=== PATIENT | female | born 1985 | race Caucasian/White ===

== ENCOUNTER 2017-04-20 19:33 | Emergency (ER) | payer MEDICAID ==
[~2017-04-20] VITALS: Ht 175.3 cm; Wt 164.1 kg
[~2017-04-20 19:33] MED LIST: IBUP600 PO; METH250T PO; OXYC1SOL5 PO; PERI8.6T PO; PREN0.01 PO; ZOVI200C24 PO
[2017-04-20 19:40] VITALS: BP 150/82; PULSE 97; RESP 18; TEMP 98.3; O2SAT 97
--- NOTE | 2017-04-20 20:34 | PD ---
HPI Chief Complaint: GI Complaint Time Seen by Provider: 20:18 Travel History International Travel<30 days: No Contact w/Intl Traveler<30days: No Traveled to known affect area: No History of Present Illness HPI The patient is a 32-year-old female that states she vomited twice at work, [employer], and was told to go to the emergency department. She does feel hot and dizzy but denies any fever. She states she has occasional diarrhea, she blames this on the metformin that she takes. She denies any blood in the stool or vomitus. She states she has a hard time urinating, she feels like she needs to urinate but it is only a small amount. PFSH Past Medical History Asthma: Yes (HX OF IN CHILDHOOD) Cancer: No Cardiovascular Problems: No Diabetes: Yes Patient Takes Glucophage: Yes (04/20/2017 at 1030) Diminished Hearing: No Endocrine: Yes Gastrointestinal Disorders: No Genitourinary: Yes (ANAL HERPES) Hepatitis: No Hiatal Hernia: No Hypertension: Yes Immune Disorder: No Musculoskeletal: No Neurologic: No Psychiatric: Yes (BI-POLAR) Reproductive: Yes Respiratory: Yes (ASTHMA) Immunizations Current: Yes Thyroid Disease: Yes Influenza Vaccination: No ?: Not LMP: 04/19/17 : 3 Para: 1 Miscarriage: 1 Dilation and Curettage (D&C): Yes Past Surgical History Section: Yes (2008) Gynecologic Surgery: Yes () Pacemaker: No Tonsillectomy: Yes (ADENOIDS TAKEN OUT) Other Surgery: Yes (RIGHT TRIGGER THUMB RELEASE) Social History Alcohol Use: No Tobacco Use: Yes (monthly) Substance Use: No Allergies-Medications (Allergen,Severity, Reaction): Coded Allergies: shellfish derived (Verified Allergy, Severe, swelling ,itching and shortness of breath, 04/20/17) Reported Meds & Prescriptions Reported Meds & Active Scripts Active Reported Metformin (Metformin HCl) 500 Mg Tab 500 Mg PO BIDPC Lisinopril 5 Mg Tab 5 Mg PO DAILY Review of Systems Except as stated in HPI: all other systems reviewed are Neg Physical Exam Narrative GENERAL: The patient is alert, obese, oriented 3 and in minimal apparent distress with her nausea. She does appear mildly dehydrated. Her vital signs show blood pressure 150/82 with heart rate of 97 but are otherwise normal. SKIN: Focused skin assessment warm/dry. HEAD: Atraumatic. Normocephalic. EYES: Pupils equal and round. No scleral icterus. No injection or drainage. ENT: No nasal bleeding or discharge. Mucous membranes pink and moist. NECK: Trachea midline. No JVD. CARDIOVASCULAR: Regular rate and rhythm. No murmur appreciated. RESPIRATORY: No accessory muscle use. Clear to auscultation. Breath sounds equal bilaterally. GASTROINTESTINAL: Abdomen soft, non-tender, nondistended. Hepatic and splenic margins not palpable. No guarding or rebound is present. MUSCULOSKELETAL: No obvious deformities. No clubbing. No cyanosis. No edema. NEUROLOGICAL: Awake and alert. No obvious cranial nerve deficits. Motor grossly within normal limits. Normal speech. PSYCHIATRIC: Appropriate mood and affect; insight and judgment normal. Data Data Last Documented VS Vital Signs Date Time Temp Pulse Resp B/P (MAP) Pulse Ox O2 Delivery O2 Flow Rate FiO2 04/20/17 21:22 71 16 133/60 (84) 98 Room Air 04/20/17 19:40 98.3 Orders Orders Ondansetron Inj (Zofran Inj) (04/20/17 20:45) Sodium Chlor 0.9% 1000 Ml Inj (Ns 1000 M (04/20/17 20:45) Beta Hcg (Quant/Titer) (04/20/17 20:35) Complete Blood Count With Diff (04/20/17 20:35) Comprehensive Metabolic Panel (04/20/17 20:35) Lipase (04/20/17 20:35) Urinalysis - C+S If Indicated (04/20/17 20:35) Iv Access Insert/Monitor (04/20/17 20:35) Ecg Monitoring (04/20/17 20:35) Oximetry (04/20/17 20:35) Sodium Chloride 0.9% Flush (Ns Flush) (04/20/17 20:45) Ed Discharge Order (04/20/17 22:28) Labs Laboratory Tests Test 04/20/17 21:00 04/20/17 21:13 Urine Color YELLOW Urine Turbidity CLOUDY Urine pH 5.5 Urine Specific [place] GREATER THAN 1.035 Urine Protein TRACE mg/dL Urine Glucose (UA) NEG mg/dL Urine Ketones 15 mg/dL Urine Occult Blood TRACE Urine Nitrite NEG Urine Bilirubin NEG Urine Leukocyte Esterase NEG Urine RBC 0-3 /hpf Urine WBC 0-2 /hpf Urine Squamous Epithelial Cells 0-5 /hpf Urine Calcium Oxalate Crystals MOD /hpf Urine Amorphous Sediment LARGE Urine Bacteria NONE /hpf Microscopic Urinalysis Comment CULT NOT INDICATED White Blood Count 11.1 TH/MM3 Red Blood Count 4.18 MIL/MM3 Hemoglobin 12.1 GM/DL Hematocrit 35.6 % Mean Corpuscular Volume 85.2 FL Mean Corpuscular Hemoglobin 29.0 PG Mean Corpuscular Hemoglobin Concent 34.0 % Red Cell Distribution Width 13.8 % Platelet Count 349 TH/MM3 Mean Platelet Volume 8.2 FL Neutrophils (%) (Auto) 63.6 % Lymphocytes (%) (Auto) 28.3 % Monocytes (%) (Auto) 5.7 % Eosinophils (%) (Auto) 1.8 % Basophils (%) (Auto) 0.6 % Neutrophils # (Auto) 7.1 TH/MM3 Lymphocytes # (Auto) 3.1 TH/MM3 Monocytes # (Auto) 0.6 TH/MM3 Eosinophils # (Auto) 0.2 TH/MM3 Basophils # (Auto) 0.1 TH/MM3 CBC Comment DIFF FINAL Differential Comment Blood Urea Nitrogen 17 MG/DL Creatinine 0.95 MG/DL Random Glucose 130 MG/DL Total Protein 8.2 GM/DL Albumin 3.6 GM/DL Calcium Level 9.0 MG/DL Alkaline Phosphatase 86 U/L Aspartate Amino Transf (AST/SGOT) 42 U/L Alanine Aminotransferase (ALT/SGPT) 58 U/L Total Bilirubin 0.2 MG/DL Sodium Level 141 MEQ/L Potassium Level 3.8 MEQ/L Chloride Level 109 MEQ/L Carbon Dioxide Level 24.7 MEQ/L Anion Gap 7 MEQ/L Estimat Glomerular Filtration Rate 69 ML/MIN Lipase 149 U/L Human Chorionic Gonadotropin, Quant LESS THAN 1 MIU/ML [facility] Medical Decision Making Medical Screen Exam Complete: Yes Emergency Medical Condition: Yes Medical Record Reviewed: Yes Interpretation(s) The CBC is normal except for a white count of 11,100. The complete metabolic profile shows a GFR of 69, glucose 130, AST of 42, ALT of 58 and the rest of the complete metabolic profile is normal. There is a normal lipase and the beta -hCG is less than 1. The urine shows a specific gravity 1.035 with trace blood and trace protein and 15 ketones and moderate calcium oxalate crystals but is otherwise unremarkable and culture is not indicated. Differential Diagnosis Viral gastroenteritis, viral gastritis, dehydration, hyper/hypoglycemia, electrolyte disorder, pancreatitis, elevated liver function test Narrative Course It is now 10:29 PM and the patient has no nausea. She is successfully drinking Gatorade. The patient also has mild dehydration as reflected in the ketones in the urine, high specific gravity of the urine. Impression: Viral gastroenteritis, mild dehydration Plan: The patient will be given prochlorperazine and a 2 day work excuse. She will also receive a prescription for meclizine for symptoms of mild vertigo. She needs to increase her liquid intake. Diagnosis Primary Impression: Viral gastroenteritis Additional Impression: Mild dehydration Additional Instructions: The meclizine and prochlorperazine have similar chemical characteristics. The prochlorperazine may be all that you need for both dizziness and nausea. If the dizziness persists, you can add the meclizine. Follow-up next week with your primary care physician. Med/Other Pt SpecificInfo: Prescription(s) given Scripts Meclizine (Meclizine) 25 Mg Tab 25 MG PO TID Y for VERTIGO, #28 TAB 0 Refills Prov: Orlin Jaramillo MD 04/20/17 Prochlorperazine Maleate (Prochlorperazine Maleate) 10 Mg Tab 10 MG PO Q6H Y for NAUSEA OR VOMITING, #30 TAB 0 Refills Prov: Orlin Jaramillo MD 04/20/17 Disposition: 01 DISCHARGE HOME Condition: Stable Orlin Jaramillo MD Apr 20, 2017 20:33
[2017-04-20] MEDS ORDERED: ONDANSETRON HCL 4 MG/2 ML VIAL IV ONE (20:45)
[2017-04-20] MEDS ORDERED: SODIUM CHLORIDE 0.9% FLUSH 10 ML FLUSH IV FLUSH PRN (20:45)
[2017-04-20] MEDS: SODIUM CHLOR 0.9% 1000 ML INJ 1,000 ML IV SCH ×2 (21:15→21:19)
[2017-04-20 21:22] VITALS: BP 133/60; PULSE 71; RESP 16; O2SAT 98
[2017-04-20 21:34] LABS: AUTOMATED NEUTROPHIL # 7.1 TH/MM3 (1.8-7.7); BASOPHIL # 0.1 TH/MM3 (0-0.2); BASOPHIL % 0.6 % (0.0-2.0); EOSINOPHIL # 0.2 TH/MM3 (0-0.4); EOSINOPHIL % 1.8 % (0.0-4.0); HEMATOCRIT 35.6 % (35.0-46.0); HEMOGLOBIN 12.1 GM/DL (11.6-15.3); LYMPH % 28.3 % (9.0-44.0); LYMPHOCYTE # 3.1 TH/MM3 (1.0-4.8); MEAN CELL VOLUME 85.2 FL (80.0-100.0); MEAN PLATELET VOLUME 8.2 FL (7.0-11.0); MONO % 5.7 % (0.0-8.0); MONOCYTE # 0.6 TH/MM3 (0-0.9); NEUT % 63.6 % (16.0-70.0); PLATELET COUNT 349 TH/MM3 (150-450); RED BLOOD COUNT 4.18 MIL/MM3 (4.00-5.30); RED CELL DISTRIBUTION WIDTH 13.8 % (11.6-17.2); WHITE BLOOD COUNT 11.1 TH/MM3 (4.0-11.0)
[2017-04-20 21:36] LABS: BILIRUBIN, URINE NEG (NEG); GLUCOSE,URINE NEG (NEG); KETONE, URINE 15 mg/dL (NEG); NITRITE,URINE NEG (NEG); PH, URINE 5.5 (5.0-8.5); URINE LEUKOCYTE ESTERASE NEG (NEG)
[2017-04-20] MEDS ORDERED: LISI-519 PO (21:40)
[2017-04-20] MEDS ORDERED: METF500T PO (21:40)
[2017-04-20 21:42] LABS: CHLORIDE 109 MEQ/L (98-107); SODIUM (NA) 141 MEQ/L (136-145)
[2017-04-20 21:45] LABS: BLOOD, URINE TRACE (NEG)
[2017-04-20 21:46] LABS: RBC, URINE 0-3 /hpf (0-3); URINE COLOR YELLOW (YELLW/STRAW); WBC, URINE 0-2 /hpf (0-5)
[2017-04-20 21:46] LABS: ALBUMIN 3.6 GM/DL (3.4-5.0); BICARBONATE 24.7 MEQ/L (21.0-32.0); BLOOD UREA NITROGEN 17 MG/DL (7-18); GLUCOSE,RANDOM 130 MG/DL (74-106)
[2017-04-20 21:47] LABS: AMORPHOUS SEDIMENT, URINE LARGE; CALCIUM OXALATE CRYSTALS,URINE MOD /hpf; SQUAMOUS EPITHELIAL CELL URINE 0-5 /hpf (0-5)
[2017-04-20 21:49] LABS: ALT (GPT) 58 U/L (10-53); AST (GOT) 42 U/L (15-37); CREATININE 0.95 MG/DL (0.50-1.00); GLOMERULAR FILTRATION RATE 69 ML/MIN (>89)
[2017-04-20 21:50] LABS: TOTAL BILIRUBIN ADULT 0.2 MG/DL (0.2-1.0); TOTAL PROTEIN 8.2 GM/DL (6.4-8.2)
[2017-04-20 21:52] LABS: ALKALINE PHOSPHATASE 86 U/L (45-117)
[2017-04-20] MEDS ORDERED: MECL-62 PO (22:31)
[2017-04-20] MEDS ORDERED: PROC10TA PO (22:31)
[2017-04-20 22:51] VITALS: BP 157/78
== END 2017-04-20 22:53 | disposition home or self-care (01) ==
LOC: PHED 19:33
DX: A08.4 Viral intestinal infection, unspecified (principal); E86.0 Dehydration; E11.9 Type 2 diabetes mellitus without complications; Z79.84 Long term (current) use of oral hypoglycemic drugs
CPT/HCPCS: 80053; 81001; 83690; 84702; 85025; 96361; 96374; 99284; J2405; J7030

== ENCOUNTER 2017-06-12 18:06 | Emergency (ER) | payer SELFPAY ==
[~2017-06-12] VITALS: Ht 175.3 cm; Wt 163.9 kg
[~2017-06-12 18:06] MED LIST changes: -IBUP600 PO; +LISI-519 PO; +MECL-62 PO; +METF500T PO; -METH250T PO; -OXYC1SOL5 PO; -PERI8.6T PO; -PREN0.01 PO; +PROC10TA PO; -ZOVI200C24 PO
[2017-06-12 18:10] VITALS: BP 172/82; PULSE 90; RESP 18; RESP 8; TEMP 98.1; O2SAT 98
[2017-06-12] MEDS ORDERED: NAPR500T2 PO (18:32)
--- NOTE | 2017-06-12 18:41 | PD ---
HPI . Vomiting Chief Complaint: GI Complaint Time Seen by Provider: 18:23 Travel History International Travel<30 days: No Contact w/Intl Traveler<30days: No Traveled to known affect area: No History of Present Illness HPI This patient presents with the acute onset of emesis. It started this afternoon while she was at work. She states that she was told to leave work and come here. She reports 3 episodes of emesis. No diarrhea. No fever. She states that she had not noticed any difficulty with urination until she got here and was asked to give us a specimen. She states that she did have the urge to urinate but that very little urine came out. In addition, the patient reports constipation. She states that she is on metformin and that her bowel movements are never regular. She declines medication for constipation because she states that she was subsequently developed diarrhea. She would rather be constipated then have diarrhea. She is not having any associated abdominal pain. Onset of symptoms was shortly prior to presentation. Progression is unchanged since onset. Severity is 3 episodes. Associated symptoms include urinary urgency and constipation. PFSH Past Medical History Asthma: Yes (HX OF IN CHILDHOOD) Cancer: No Cardiovascular Problems: Yes (HTN) Diabetes: Yes Patient Takes Glucophage: Yes Diminished Hearing: No Endocrine: Yes Gastrointestinal Disorders: Yes (constipations) Genitourinary: Yes (ANAL HERPES) Hepatitis: No Hiatal Hernia: No Hypertension: Yes (pt states does not take meds htn under control) Immune Disorder: No Medical other: Yes (neuropathy both feet) Musculoskeletal: No Neurologic: No Psychiatric: Yes (BI-POLAR) Reproductive: Yes Respiratory: Yes (ASTHMA) Immunizations Current: Yes Thyroid Disease: Yes Tetanus Vaccination: < 5 Years Influenza Vaccination: No ?: Not LMP: 05-21-18 : 3 Para: 1 Miscarriage: 1 Dilation and Curettage (D&C): Yes (x1) Tubal Ligation: Yes Past Surgical History Section: Yes (x 2) Gynecologic Surgery: Yes (C-SECTIONS) Pacemaker: No Tonsillectomy: Yes (ADENOIDS TAKEN OUT) Tympanostomy Tube: Yes (both ears) Other Surgery: Yes (RIGHT TRIGGER THUMB RELEASE) Social History Alcohol Use: Yes (occas wine) Tobacco Use: Yes (occas cigs few times in a month) Substance Use: No Allergies-Medications (Allergen,Severity, Reaction): Coded Allergies: shellfish derived (Verified Allergy, Severe, swelling ,itching and shortness of breath, 06/12/17) Reported Meds & Prescriptions Reported Meds & Active Scripts Active Reported Naproxen 500 Mg Tab 500 Mg PO BID Metformin (Metformin HCl) 500 Mg Tab 1,000 Mg PO BIDPC Review of Systems Except as stated in HPI: all other systems reviewed are Neg General / Constitutional: No: Fever, Chills Gastrointestinal: Positive: Nausea, Vomiting, Constipation, No: Diarrhea, Abdominal Pain Genitourinary: Positive: Urgency, No: Frequency, Dysuria Physical Exam Narrative GENERAL: Awake and alert and in no acute distress. Markedly obese. BMI is 53.4. SKIN: Warm and dry. Normal color and turgor. HEAD: Normocephalic/atraumatic. EYES: Pupils are equal. Extraocular movements are intact. NECK: Normal range of motion. CARDIOVASCULAR: Regular rate and rhythm. RESPIRATORY: Nonlabored respirations. ABDOMEN: Difficult secondary to size. She denies any tenderness. MUSCULOSKELETAL: Atraumatic. NEUROLOGICAL: Nonfocal. PSYCHIATRIC: Appropriate mood and affect. Data Data Last Documented VS Vital Signs Date Time Temp Pulse Resp B/P (MAP) Pulse Ox O2 Delivery O2 Flow Rate FiO2 06/12/17 18:58 85 18 144/94 (111) 98 Room Air 06/12/17 18:10 98.1 Orders Orders Ed Urine Pregnancytest Poc (06/12/17 18:26) Urinalysis - C+S If Indicated (06/12/17 18:37) Ondansetron Odt (Zofran Odt) (06/12/17 18:45) Labs Laboratory Tests Test 06/12/17 18:40 Urine Color YELLOW Urine Turbidity [place] CLOUDY Urine pH 5.5 Urine Specific [place] GREATER/EQUAL 1.030 Urine Protein NEG mg/dL Urine Glucose (UA) NEG mg/dL Urine Ketones NEG mg/dL Urine Occult Blood NEG Urine Nitrite NEG Urine Bilirubin NEG Urine Urobilinogen 0.2 MG/DL Urine Leukocyte Esterase NEG Urine RBC 0-2 /hpf Urine WBC 3-5 /hpf Urine Squamous Epithelial Cells 6-8 /hpf Urine Bacteria OCC /hpf Microscopic Urinalysis Comment CULT NOT INDICATED MDM Medical Decision Making Medical Screen Exam Complete: Yes Emergency Medical Condition: Yes Differential Diagnosis Differential diagnosis includes but is not limited to viral gastritis, food poisoning, pancreatitis, pneumonia, hepatitis, acute coronary syndrome, Narrative Course This patient presents to us from work for the acute onset of vomiting. I will check a test and a UA. She will be treated with Zofran. She does not appear dehydrated. test is negative. Urinalysis is negative. I will discharge the patient to home with a prescription for Zofran. Diagnosis Primary Impression: Vomiting Qualified Codes: R11.2 - Nausea with vomiting, unspecified Patient Instructions: Acute Nausea and Vomiting (DC), General Instructions Departure Forms: Tests/Procedures, Work Release Special Instructions: May return to work when you have had no vomiting for 12 hours Med/Other Pt SpecificInfo: Prescription(s) given Scripts Ondansetron (Zofran) 4 Mg Tab 4 MG PO Q6HR Y for NAUSEA OR VOMITING, #6 TAB 0 Refills Prov: Jolanta Cage MD 06/12/17 Disposition: DISCHARGE HOME Condition: Stable Jolanta Cage MD Jun 12, 2017 18:41
[2017-06-12] MEDS ORDERED: ONDANSETRON ODT 4 MG TAB PO ONE (18:45)
[2017-06-12 18:46] LABS: BILIRUBIN, URINE NEG (NEG); BLOOD, URINE NEG (NEG); GLUCOSE,URINE NEG (NEG); KETONE, URINE NEG (NEG); NITRITE,URINE NEG (NEG); PH, URINE 5.5 (5.0-8.5); URINE COLOR YELLOW (YELLW/STRAW); URINE LEUKOCYTE ESTERASE NEG (NEG)
[2017-06-12 18:56] LABS: BACTERIA, URINE OCC /hpf; RBC, URINE 0-2 /hpf (0-3)
[2017-06-12 18:58] VITALS: BP 144/94; PULSE 85; RESP 18; O2SAT 98
[2017-06-12] MEDS ORDERED: ZOFR4TAB PO (19:05)
[2017-06-12 20:16] VITALS: BP 144/93
== END 2017-06-12 20:17 | disposition home or self-care (01) ==
LOC: PHED 18:06
DX: R11.2 Nausea with vomiting, unspecified (principal); K59.00 Constipation, unspecified; R19.7 Diarrhea, unspecified; J45.909 Unspecified asthma, uncomplicated; I10 Essential (primary) hypertension; E11.40 Type 2 diabetes mellitus with diabetic neuropathy, unspecified; F31.9 Bipolar disorder, unspecified; E07.9 Disorder of thyroid, unspecified; F17.210 Nicotine dependence, cigarettes, uncomplicated
CPT/HCPCS: 81001; 84703; 99283